=== PATIENT | female | born 1940 | race Caucasian/White ===

== ENCOUNTER 2017-05-24 13:24 | Emergency (ER) | payer OTHER ==
[~2017-05-24] VITALS: Ht 154.9 cm; Wt 79.8 kg
[2017-05-24 14:24] LABS: BASOPHIL % 0.5 % (0-2); PLATELET COUNT 209 x10^3mcL (130-400)
[2017-05-24 14:30] LABS: CALCIUM 9.4 mg/dL (8.5-10.1); CARBON DIOXIDE 21.1 mmol/L (21-32); CHLORIDE SERUM 106 mmol/L (98-107); CREATININE SERUM 1.2 mg/dL (0.6-1.0); GLUCOSE SERUM 194 mg/dL (74-106); POTASSIUM SERUM 4.1 mmol/L (3.5-5.1); SODIUM SERUM 138 mmol/L (136-145)
[2017-05-24 14:35] LABS: ALBUMIN 3.6 g/dL (3.4-5.0); ALKALINE PHOSPHATASE 88 U/L (46-116); ALT/SGPT 33 U/L (14-59); AST/SGOT 26 U/L (15-37); BILIRUBIN TOTAL 0.2 mg/dL (0.20-1.00); TOTAL PROTEIN, SERUM 7.1 g/dL (6.4-8.2)
[2017-05-24 14:36] LABS: RED CELL DISTRIBUTION WIDTH 14.9 % (11.5-14.5)
[2017-05-24 15:48] VITALS: BP 102/48
== END 2017-05-24 15:48 | disposition home or self-care (01) ==
LOC: ED 13:24
PROVIDERS: Emergency Medicine
DX: K57.92 Diverticulitis of intestine, part unspecified, without perforation or abscess without bleeding (principal); K57.90 Diverticulosis of intestine, part unspecified, without perforation or abscess without bleeding; I10 Essential (primary) hypertension
CPT/HCPCS: 83880; J7040; Q0092

== ENCOUNTER 2019-02-06 21:38 | Emergency (ER) | payer OTHER ==
[~2019-02-06] VITALS: Ht 162.6 cm; Wt 72.6 kg
[2019-02-06 21:55] VITALS: Ht 162.6 cm; Wt 72.6 kg
[2019-02-06 23:35] LABS: BASOPHIL % 0.5 % (0-2); PLATELET COUNT 235 x10^3mcL (130-400); RED CELL DISTRIBUTION WIDTH 14.5 % (11.5-14.5)
[2019-02-06 23:58] LABS: CALCIUM 9.6 mg/dL (8.5-10.1); CARBON DIOXIDE 24.6 mmol/L (21-32); CHLORIDE SERUM 105 mmol/L (98-107); CREATININE SERUM 1.2 mg/dL (0.6-1.0); GLUCOSE SERUM 117 mg/dL (74-106); POTASSIUM SERUM 4.2 mmol/L (3.5-5.1); SODIUM SERUM 140 mmol/L (136-145)
[2019-02-07 00:42] VITALS: BP 119/56
== END 2019-02-07 00:42 | disposition home or self-care (01) ==
LOC: ED 21:38
PROVIDERS: Specialist
DX: I10 Essential (primary) hypertension (principal); R42 Dizziness and giddiness; Z90.49 Acquired absence of other specified parts of digestive tract; Z90.710 Acquired absence of both cervix and uterus
CPT/HCPCS: 36415; Q0162